=== PATIENT | female | born 1995 | race Caucasian/White ===

== ENCOUNTER 2018-05-02 08:46 | Day surgery (SDC) | payer MEDICAID ==
[~2018-05-02] VITALS: Ht 167.6 cm; Wt 82.0 kg
[2018-05-02] MEDS ORDERED: LIDOCAINE/PF 2% 5 ML VIAL IM ONE (08:47)
[2018-05-02] MEDS ORDERED: PROPOFOL 1% 20 ML VIAL IVP ONE (08:47)
[2018-05-02] MEDS ORDERED: SODIUM CHLORIDE 0.9% 1,000 ML IV ONE ×2 (09:36→11:30)
== END 2018-05-02 14:00 | disposition home or self-care (01) ==
LOC: SURGERY 08:46
PROVIDERS: ATTEND Student in an Organized Health Care Education/Training Program
DX: K64.8 Other hemorrhoids (principal); K63.89 Other specified diseases of intestine; K21.9 Gastro-esophageal reflux disease without esophagitis; E66.3 Overweight; Z72.89 Other problems related to lifestyle
CPT/HCPCS: 45380; 88305; 88313; C1769; J2704; J3490; J7030

== ENCOUNTER 2018-05-09 11:56 | Day surgery (SDC) | payer MEDICAID ==
[~2018-05-09] VITALS: Ht 167.6 cm; Wt 81.8 kg
[~2018-05-09 11:56] MED LIST: SODIUM CHLORIDE 0.9% 1,000 ML IV ONE
[2018-05-09] MEDS ORDERED: PROPOFOL 1% 20 ML VIAL IVP ONE (11:57)
[2018-05-09] MEDS ORDERED: LIDOCAINE/PF 2% 5 ML VIAL INJ ONE (11:57)
[2018-05-09] MEDS ORDERED: SODIUM CHLORIDE 0.9% 1,000 ML IV ONE (12:00)
== END 2018-05-09 15:25 | disposition home or self-care (01) ==
LOC: SURGERY 11:56 → EDUNIT# 14:00 → SURGERY 15:25
PROVIDERS: ATTEND Student in an Organized Health Care Education/Training Program
DX: K29.30 Chronic superficial gastritis without bleeding (principal); K29.80 Duodenitis without bleeding; B96.81 Helicobacter pylori [H. pylori] as the cause of diseases classified elsewhere; K21.9 Gastro-esophageal reflux disease without esophagitis; K31.9 Disease of stomach and duodenum, unspecified; E66.3 Overweight; Z72.89 Other problems related to lifestyle; Z98.890 Other specified postprocedural states
CPT/HCPCS: 43239; 84703; 88305; 88312; 88313; C1769; J2704; J3490; J7030